=== PATIENT | male | born 1990 | race American Indian/Alaskan Native ===

== ENCOUNTER 2016-09-14 10:59 | Emergency (ER) | payer MEDICAID ==
[2016-09-14 11:02] VITALS: BMI 21.5
[2016-09-14] MEDS ORDERED: Sodium Chloride 0.9% 1,000 ML ONE (11:12)
[2016-09-14] MEDS ORDERED: Morphine 4 MG/ML VIAL ONE (11:16)
[2016-09-14] MEDS ORDERED: Sodium Chloride 0.9% 1,000 ML IV ONE (11:18)
[2016-09-14 11:23] LABS: BASO % 0.4 % (0.0-2.0); EOS # 0.1 K/uL (0.0-0.7); EOS % 1.9 % (0.0-4.0); HEMOGLOBIN 15.2 g/dL (12.0-18.0); LYMPH # 3.2 K/uL (1.0-4.3); MEAN CELL VOLUME 89.8 fL (80.0-94.0); MEAN CORPUSCULAR HEMOGLOBIN 30.1 pg (27.0-31.0); MEAN CORPUSCULAR HGB CONC 33.5 g/dL (33.0-37.0); MEAN PLATELET VOLUME 9.1 fL (7.2-11.7); MONO # 0.6 K/uL (0.0-0.8); MONO % 10.5 % (0.0-10.0); NEUT # 1.7 K/uL (1.8-7.0); NEUT % 30.2 % (50.0-75.0); NRBC % 0.1 % (0.0-2.0); RBC 5.05 Mil/uL (4.40-5.90); RED CELL DISTRIBUTION WIDTH 12.6 % (11.5-14.5); WHITE BLOOD COUNT 5.5 K/uL (4.8-10.8)
[2016-09-14 11:31] LABS: ALBUMIN 3.9 g/dL (3.5-5.0)
[2016-09-14 11:34] LABS: ALB/GLOB RATIO 1.2 (1.0-2.1); ALT/SGPT 34 U/L (21-72); AST/SGOT 19 U/L (17-59); BLOOD UREA NITROGEN 11 mg/dL (9-20); GFR AFRICAN-AMERICAN > 60; GFR NON-AFRICAN AMERICAN > 60
[2016-09-14 11:35] LABS: CALCIUM 8.6 mg/dl (8.6-10.4); LIPASE 37 U/L (23-300)
[2016-09-14] MEDS ORDERED: HYDROmorphone 1 mg/ml ISec IVP STA (11:56)
[2016-09-14] MEDS ORDERED: HYDROmorphone 1 mg/ml ISec ONE (12:00)
--- NOTE | 2016-09-14 12:14 | C.PDOC ---
History Of Present Illness Patient is a 25 y/o male that presents to the ED for evaluation of left flank pain associated with nausea, and vomiting since this morning. Denies having history of kidney stones. Notes taking Ibuprofen at home without any relief. Otherwise, denies any fever, chills, dysuria, hematuria, or any other associated symptoms at this time. Time Seen by Provider: 09/14/16 11:05 Chief Complaint (Nursing): Back Pain History Per: Patient History/Exam Limitations: no limitations Onset/Duration Of Symptoms: Hrs Current Symptoms Are (Timing): Still Present Quality Of Discomfort: "Pain" Previous Symptoms: denies: Prior Injury Associated Symptoms: None. denies: Incontinence, New Weakness, New Numbness Exacerbating Factor(s): Nothing Recent travel outside of the [place]: No Additional History Per: Patient Past Medical History Reviewed: Historical Data, Nursing Documentation, Vital Signs Vital Signs: Last Vital Signs Temp 97.9 F 09/14/16 14:50 Pulse 101 H 09/14/16 14:50 Resp 18 09/14/16 14:50 BP 118/70 09/14/16 14:50 Pulse Ox 95 09/14/16 14:50 Family History: States: No Known Family Hx - Social History Hx Alcohol Use: Yes Hx Substance Use: No - Immunization History Hx Tetanus Toxoid Vaccination: No Hx Influenza Vaccination: No Hx Pneumococcal Vaccination: No Review Of Systems Except As Marked, All Systems Reviewed And Found Negative. Constitutional: Negative for: Fever, Chills Cardiovascular: Negative for: Chest Pain, Palpitations Respiratory: Negative for: Shortness of Breath Gastrointestinal: Positive for: Nausea, Vomiting. Negative for: Abdominal Pain , Diarrhea Genitourinary: Negative for: Dysuria, Frequency, Incontinence, Hematuria Musculoskeletal: Positive for: Back Pain (left flank pain) Skin: Negative for: Rash Neurological: Negative for: Weakness, Numbness Physical Exam - Physical Exam Appears: Non-toxic, In Acute Distress (actively vomiting and in painful distress ) Skin: Normal Color, Warm, Dry Head: Atraumatic, Normacephalic Eye(s): bilateral: Normal Inspection, EOMI Nose: Normal Oral Mucosa: Moist Neck: Normal ROM, Supple Chest: Symmetrical Cardiovascular: Rhythm Regular, No Murmur Respiratory: Normal Breath Sounds, No Rales, No Rhonchi, No Wheezing Gastrointestinal/Abdominal: Soft, No Tenderness Back: CVA Tenderness (left), No Vertebral Tenderness, No Paraspinal Tenderness Extremity: Normal ROM Neurological/Psych: Oriented x3, Normal Speech ED Course And Treatment - Laboratory Results Result Diagrams: 09/14/16 11:19 09/14/16 11:19 O2 Sat by Pulse Oximetry: 100 (on RA) Pulse Ox Interpretation: Normal - CT Scan/US Abd & pelvis CT Other Rad Studies (CT/US): Read By Radiologist, Radiology Report Reviewed CT/US Interpretation: Findings: Mild atelectasis at the lung bases. No pleural or pericardial effusion. Liver and gallbladder appear preserved. Spleen appears preserved. Adrenal glands appear preserved. Pancreas appears preserved. Upper abdominal bowel appears preserved. Right kidney: No calculi or hydronephrosis. Left Kidney: Mild left renal hydroureteronephrosis with a 3 millimeter calculus at the left ureterovesicular junction. Additional punctate 3 millimeter calculus in the midpole of the left kidney. Multiple calcified phleboliths in the pelvis. Heterogeneous prostate. Mild fecal retention in the colon. Appendix partially visualized, grossly preserved. Few shotty para- aortic and inguinal lymph nodes. Few shotty mesenteric lymph nodes. Degenerative changes in the spine. Impression: Mild left renal hydroureteronephrosis with a 3 millimeter calculus at the left ureterovesicular junction. Additional punctate 3 millimeter calculus in the midpole of the left kidney. Additional findings as above. Progress Note: Blood work, urinalysis, abd & pelvis CT ordered and reviewed. Patient was given IV fluids, Morphine, Zofran, and Dilaudid. On reassessment, patient notes pain improved. (+) vomited x 1. REglan and toradol ordered. On re-evlauation, PTis resting comfortably, no acute distress. Non tenderness. Notes he feels better. Afebrile. Tolerating PO. Pt was given CT results and instructed to follow up with urology in 1-2 days. Instructed to return to ER if symptoms persist or worsen. Disposition - Disposition Referrals: Trace Arboleda MD [Staff Provider] - Disposition: HOME/ ROUTINE Disposition Time: 14:41 Condition: STABLE Additional Instructions: Follow up with your primary medical doctor or clinic in 2-5 days for further evaluation. Take medications as prescribed. Return to the emergency department at any time if symptoms persist or worsen. Prescriptions: Naproxen [Naprosyn] 1 tab PO BID PRN #20 tab PRN Reason: Pain Ondansetron ODT [Zofran ODT] 1 odt PO BID PRN #6 odt PRN Reason: Nausea/Vomiting oxyCODONE/Acetaminophen [Percocet 5/325 mg Tab] 1 tab PO QID PRN #20 tab PRN Reason: Pain Tamsulosin [Flomax] 0.4 mg PO DAILY #10 cap Instructions: Kidney Stones (ED) - Clinical Impression Clinical Impression: Nephrolithiasis, Renal colic - PA / EXTRACORPOREAL CIRCULATION SPECIALIST / Resident Statement MD/DO has reviewed & agrees with the documentation as recorded. - Scribe Statement The provider has reviewed the documentation as recorded by the Cristina Estrella All medical record entries made by the Cristina were at my direction and personally dictated by me. I have reviewed the chart and agree that the record accurately reflects my personal performance of the history, physical exam, medical decision making, and the department course for this patient. I have also personally directed, reviewed, and agree with the discharge instructions and disposition.
--- NOTE | 2016-09-14 12:23 | CT ---
CT abdomen and pelvis History: Abdominal pain. Comparison: None available. Technique: Multiple contiguous axial images were performed through the abdomen and pelvis without the use of intravenous contrast. Subsequently, sagittal and coronal reformatted images were obtained. This CT exam was performed using one or more of the following dose reduction techniques: Automated exposure control, adjustment of the mA and/or kV according to patient size, and/or use of iterative reconstruction technique. Findings: Mild atelectasis at the lung bases. No pleural or pericardial effusion. Liver and gallbladder appear preserved. Spleen appears preserved. Adrenal glands appear preserved. Pancreas appears preserved. Upper abdominal bowel appears preserved. Right kidney: No calculi or hydronephrosis. Left Kidney: Mild left renal hydroureteronephrosis with a 3 millimeter calculus at the left ureterovesicular junction. Additional punctate 3 millimeter calculus in the midpole of the left kidney. Multiple calcified phleboliths in the pelvis. Heterogeneous prostate. Mild fecal retention in the colon. Appendix partially visualized, grossly preserved. Few shotty para-aortic and inguinal lymph nodes. Few shotty mesenteric lymph nodes. Degenerative changes in the spine. Impression: Mild left renal hydroureteronephrosis with a 3 millimeter calculus at the left ureterovesicular junction. Additional punctate 3 millimeter calculus in the midpole of the left kidney. Additional findings as above.
[2016-09-14 13:40] VITALS: TEMP 97.9
[2016-09-14 14:36] LABS: SQUAMOUS EPITHIAL < 1 /hpf (0-5); URINE BILIRUBIN NEGATIVE (NEGATIVE); URINE BLOOD 3+ (NEGATIVE); URINE CLARITY Clear (Clear); URINE COLOR Yellow (YELLOW); URINE GLUCOSE (UA) NORMAL (Normal); URINE LEUKOCYTE ESTERASE NEG Leu/uL (Negative); URINE NITRATE NEGATIVE (NEGATIVE); URINE PROTEIN NEGATIVE (NEGATIVE); URINE UROBILINOGEN NORMAL mg/dL (0.2-1.0)
[2016-09-14 14:51] VITALS: BP 118/70; PULSE 101; RESP 18
[2016-09-14 18:10] VITALS: O2SAT 100
== END 2016-09-14 14:55 | disposition home or self-care (01) ==
LOC: C.ER 10:59
DX: N13.2 Hydronephrosis with renal and ureteral calculous obstruction (principal)
CPT/HCPCS: 74176; 80053; 81001; 83690; 85025; 96361; 96365; 96375; 99285; J1170; J1885; J2270; J2405; J2765; J7040